=== PATIENT | female | born 1950 | race Caucasian/White ===

== ENCOUNTER 2018-08-21 12:08 | Emergency (ER) | payer OTHER ==
[~2018-08-21] VITALS: Ht 160 cm; Wt 61.2 kg
[2018-08-21 12:51] LABS: HEMATOCRIT 37.1 % (37.0-47.0); HEMOGLOBIN 12.8 gm/dL (12.0-15.0); MCHC 34.4 g/dL (28.0-37.0); MCV 87.3 fL (80.0-100.0); RBC 4.25 mil/uL (4.20-5.00); RDW 14.7 % (10.5-14.5); WBC 10.1 thou/uL (4.0-11.0)
[2018-08-21 12:59] LABS: CALCIUM 9.5 mg/dL (8.5-10.1); CREATININE 1.1 mg/dL (0.6-1.0); POTASSIUM 3.6 mmol/L (3.5-5.1)
[2018-08-21 13:05] LABS: ALBUMIN 3.4 g/dL (3.4-5.0); TOTAL BILIRUBIN 0.6 mg/dL (<0.1-1.0); TOTAL PROTEIN 8.2 g/dL (6.4-8.2)
[2018-08-21] MEDS ORDERED: AZITHROMYCIN 2250 MG PO (15:03)
[2018-08-21] MEDS ORDERED: VENTOLIN HFA 1818 GM INH (15:03)
[2018-08-21 15:27] VITALS: BP 127/69
[2018-08-21] MEDS ORDERED: AMBIEN 5 MG TABL5 M1 PO (15:53)
--- NOTE | 2018-08-22 10:55 | EKG ---
[place] [address] [facility] [address] [place] [address] ELECTROCARDIOGRAM REPORT Name: OZZIE BUSCH Room #: [facility]#: [id number] Admission: 08/21/18 Attend Phys: Discharge: 08/21/18 Date of : 54 Report #: [id number] THIS REPORT FOR: //name// [facility] ED Test Date: 2018-08-21 Test Time: 12:23:24 Pat Name: OZZIE BUSCH Department: Room: Gender: F [employer]: ISAAC : 1950 Requested By: Sami Martínez Order Number: [id number] MD: Willam Servin Measurements Intervals [place] Rate: 109 P: 52 VT: 137 QRS: 87 QRSD: 86 T: 39 QT: 327 QTc: 441 Interpretive Statements Sinus tachycardia Borderline right axis deviation Low voltage, extremity leads Abnormal R-wave progression, late transition Compared to ECG 10/07/2004 21:29:18 Sinus rhythm no longer present Electronically Signed On 08-22-2018 10:55:35 LINE PRODUCER by Willam Servin [email or web address] <ELECTRONICALLY SIGNED> By: Willam Servin MD 08/22/18 1055 D: [id number] 22 Willam Servin MD /VAZQUEZ
== END 2018-08-21 15:40 | disposition home or self-care (01) ==
LOC: ER 12:08
PROVIDERS: Emergency Medicine
DX: J18.9 Pneumonia, unspecified organism (principal); F32.9 Major depressive disorder, single episode, unspecified; F41.9 Anxiety disorder, unspecified

== ENCOUNTER 2020-07-03 22:17 | Emergency (ER) | payer OTHER ==
[~2020-07-03] VITALS: Ht 157.5 cm; Wt 63.5 kg
[~2020-07-03 22:17] MED LIST: AMBIEN 5 MG TABL5 M1 PO; AZITHROMYCIN 2250 MG PO; VENTOLIN HFA 1818 GM INH
[2020-07-03] MEDS ORDERED: NORVASC5 MG PO (23:57)
[2020-07-03] MEDS ORDERED: PRIMIDONE50 MG PO (23:57)
[2020-07-03] MEDS ORDERED: ALPRAZOLAM 0.50.5 M1 PO (23:58)
[2020-07-03] MEDS ORDERED: DOXEPIN 10 MG C10 M1 PO (23:58)
[2020-07-03] MEDS ORDERED: VALSARTAN-HCTZ1 EAC3 PO (23:58)
[2020-07-03] MEDS ORDERED: DULOXETINE HCL60 MG PO (23:59)
[2020-07-03] MEDS ORDERED: ATORVASTATIN CA20 MG PO (23:59)
[2020-07-03] MEDS ORDERED: BUPROPION HCL200 MG PO (23:59)
[2020-07-03] MEDS ORDERED: DULOXETINE HCL30 MG PO (23:59)
[2020-07-04] MEDS ORDERED: SIMVASTATIN40 MG PO
[2020-07-04] MEDS ORDERED: ANORO ELLIPTA1 EACH INH
[2020-07-04 00:30] LABS: URINE BILIRUBIN NEGATIVE (Negative); URINE BLOOD NEGATIVE (Negative); URINE CLARITY CLEAR; URINE COLOR YELLOW; URINE GLUCOSE-RANDOM* NEGATIVE (Negative); URINE KETONES NEGATIVE (Negative); URINE LEUKOCYTES-REFLEX NEGATIVE (Negative); URINE NITRITE-REFLEX NEGATIVE (Negative); URINE PROTEIN (DIPSTICK) NEGATIVE (Negative); URINE SPECIFIC GRAVITY 1.015 (1.005-1.035); URINE UROBILINOGEN 0.2 E.U./dl (0.2-1.0)
[2020-07-04 01:01] LABS: ABSOLUTE NEUTROPHILS 5.9 thou/uL (1.4-8.2); BASOPHILS 0.9 % (0.0-2.0); EOSINOPHILS 0.6 % (0.0-3.0); HEMATOCRIT 36.2 % (37.0-47.0); LYMPHOCYTES 12.1 % (24.0-44.0); MCH 30.1 pg (26.0-34.0); MCHC 33.1 g/dL (28.0-37.0); PLATELET COUNT 325 thou/uL (150-400); POLYS 79.4 % (36.0-66.0); RBC 3.98 mil/uL (4.20-5.00); WBC 7.4 thou/uL (4.0-11.0)
[2020-07-04 01:03] LABS: ANION GAP 11 mmol/L (7-16); BUN 18 mg/dL (7-18); CALCIUM 9.9 mg/dL (8.5-10.1); CHLORIDE 99 mmol/L (98-107); CO2 25 mmol/L (21-32); CREATININE 0.9 mg/dL (0.6-1.0); GLUCOSE 130 mg/dL (74-106); POTASSIUM 4.4 mmol/L (3.5-5.1); SODIUM 135 mmol/L (136-145)
[2020-07-04 01:11] LABS: TROPONIN-I <0.06 ng/mL (<0.06)
[2020-07-04 01:29] VITALS: BP 112/69
--- NOTE | 2020-07-05 07:17 | EKG ---
[place] [address] [facility] [place] [address] ELECTROCARDIOGRAM REPORT Name: OZZIE BUSCH Room #: [facility]#: [id number] Admission: 07/03/20 Attend Phys: Discharge: 07/04/20 Date of : 54 Report #: [id number] [facility] ED Test Date: 2020-07-03 Test Time: 22:26:18 Pat Name: OZZIE BUSCH Department: Room: Gender: F [employer] Her[employer]ist: [facility] : 1950 Requested By: Wei Ibarra Order Number: [id number] MD: Samson Wong Measurements Intervals [place] Rate: 89 P: 4 ID: 157 QRS: 65 QRSD: 101 T: 58 QT: 406 QTc: 495 Interpretive Statements Sinus rhythm Low voltage, extremity and precordial leads Borderline prolonged QT interval Compared to ECG 08/21/2018 12:23:24 Sinus tachycardia no longer present Electronically Signed On 07-05-2020 7:17:35 HUB CUTTER by Samson Wong [email or web address] <ELECTRONICALLY SIGNED> By: Samson Wong MD, [facility] 07/05/20 0717 2225 25 Samson Wong MD, FACC /EPI
== END 2020-07-04 01:29 | disposition home or self-care (01) ==
LOC: ER 22:17
PROVIDERS: Nurse Practitioner
DX: R56.9 Unspecified convulsions (principal); R55 Syncope and collapse; R11.0 Nausea; R41.0 Disorientation, unspecified; F32.9 Major depressive disorder, single episode, unspecified; F41.9 Anxiety disorder, unspecified; Z79.899 Other long term (current) drug therapy

== ENCOUNTER 2021-03-01 14:26 | Emergency (ER) | payer OTHER ==
[~2021-03-01] VITALS: Ht 154.9 cm; Wt 60.3 kg
[~2021-03-01 14:26] MED LIST changes: +ALPRAZOLAM 0.50.5 M1 PO; +ANORO ELLIPTA1 EACH INH; +ATORVASTATIN CA20 MG PO; +BUPROPION HCL200 MG PO; +DOXEPIN 10 MG C10 M1 PO; +DULOXETINE HCL30 MG PO; +DULOXETINE HCL60 MG PO; +NORVASC5 MG PO; +PRIMIDONE50 MG PO; +SIMVASTATIN40 MG PO; +VALSARTAN-HCTZ1 EAC3 PO
[2021-03-01] MEDS ORDERED: POLYMYXIN B/TMP10 ML RT. EYE (15:25)
[2021-03-01 16:03] VITALS: BP 136/80
== END 2021-03-01 16:03 | disposition home or self-care (01) ==
LOC: ER 14:26
DX: S05.01XA Injury of conjunctiva and corneal abrasion without foreign body, right eye, initial encounter (principal); F32.9 Major depressive disorder, single episode, unspecified; F41.9 Anxiety disorder, unspecified; Z79.899 Other long term (current) drug therapy; X58.XXXA Exposure to other specified factors, initial encounter; Y93.89 Activity, other specified; Y92.89 Other specified places as the place of occurrence of the external cause; Y99.8 Other external cause status

== ENCOUNTER 2021-06-16 11:32 | Emergency (ER) | payer OTHER ==
[~2021-06-16] VITALS: Ht 154.9 cm; Wt 63.5 kg
[~2021-06-16 11:32] MED LIST changes: +POLYMYXIN B/TMP10 ML RT. EYE
[2021-06-16] MEDS ORDERED: NORCO5 PO (13:01)
[2021-06-16 13:10] VITALS: BP 142/58
== END 2021-06-16 13:11 | disposition home or self-care (01) ==
LOC: ER 11:32
DX: S06.0X0A Concussion without loss of consciousness, initial encounter (principal); S01.81XA Laceration without foreign body of other part of head, initial encounter; H11.32 Conjunctival hemorrhage, left eye; Z79.899 Other long term (current) drug therapy; W01.0XXA Fall on same level from slipping, tripping and stumbling without subsequent striking against object, initial encounter; Y93.01 Activity, walking, marching and hiking; Y92.89 Other specified places as the place of occurrence of the external cause; Y99.9 Unspecified external cause status